=== PATIENT | female | born 1985 | race African-American/Black ===

== ENCOUNTER 2018-06-25 22:35 | Emergency (ER) | payer MEDICAID ==
[~2018-06-25] VITALS: Ht 152.4 cm; Wt 45.7 kg
--- NOTE | 2018-06-25 22:50 | NUR ---
Ale JOHNSON, at bedside to evaluate pt.
[2018-06-25] MEDS ORDERED: MAALOX/HYOSCYAMINE/LIDOCAINE 45 ML BTL PO ONE (23:00)
--- NOTE | 2018-06-25 23:17 | NUR ---
Pt back to room from imaging.
--- NOTE | 2018-06-25 23:26 | NUR ---
Lab at bedside.
[2018-06-25] MEDS ORDERED: MAALOX/HYOSCYAMINE/LIDOCAINE 45 ML BTL ONE (23:28)
--- NOTE | 2018-06-25 23:30 | NUR ---
Pt medicated per MAR.
[2018-06-25 23:38] LABS: BASOPHILS # (AUTO) 0.07 x10^3/uL (0-0.1); BASOPHILS % (AUTO) 1 % (0-1); EOSINOPHILS # (AUTO) 0.28 x10^3/uL (0-0.4); EOSINOPHILS % (AUTO) 3 % (1-7); LYMPHOCYTES # (AUTO) 3.22 x10^3/uL (1-3.4); LYMPHOCYTES % (AUTO) 30 % (22-44); MD NO; MEAN CORPUSCULAR HGB CONC 32.7 g/dL (32.4-35.8); MEAN CORPUSCULAR VOLUME 85.4 fL (80-100); MEAN PLATELET VOLUME 8.3 fL (7.4-10.4); MONOCYTES # (AUTO) 0.54 x10^3/uL (0.2-0.8); MONOCYTES % (AUTO) 5 % (2-9); NEUTROPHILS # (AUTO) 6.74 x10^3/uL (1.8-6.8); NEUTROPHILS % (AUTO) 62 % (42-75); PLATELET COUNT 315 x10^3/uL (130-400); RED BLOOD COUNT 5.04 x10^6/uL (3.82-5.3)
--- NOTE | 2018-06-25 23:42 | NUR ---
Pt denies any decrease in pain after medication.
[2018-06-25 23:50] LABS: ALANINE AMINOTRANSFERASE 26 U/L (12-78); ALBUMIN 3.6 g/dL (3.4-5.0); ANION GAP 6 mmol/L (5-15); CALCIUM 8.5 mg/dL (8.5-10.1); CHLORIDE 109 mmol/L (98-107)
[2018-06-25 23:55] LABS: ALKALINE PHOSPHATASE 50 U/L (45-117); BILIRUBIN,TOTAL 0.3 mg/dL (0.2-1.0); CREATININE 0.54 mg/dL (0.55-1.02); TOTAL PROTEIN 7.3 g/dL (6.4-8.2); TROPONIN I < 0.015 ng/mL (0.000-0.045)
[2018-06-26] MEDS ORDERED: IBUPROFEN 800 MG TABLET PO STA (00:29)
[2018-06-26] MEDS ORDERED: IBUPROFEN 800 MG TABLET ONE (00:32)
--- NOTE | 2018-06-26 00:36 | NUR ---
Pt medicated per MAR.
[2018-06-26 01:44] VITALS: BP 104/58
--- NOTE | 2018-06-26 01:45 | NUR ---
DR. CRUZ AT BEDSIDE TO DISCUSS ED FINDINGS AND D/C INFORMATION.
--- NOTE | 2018-06-26 01:47 | NUR ---
Patient/Caregiver given discharge instructions and they have confirmed that they understand the instructions. Patient ambulatory with steady gait.
== END 2018-06-26 01:49 | disposition home or self-care (01) ==
LOC: ED 23:54
DX: R07.89 Other chest pain (principal)
CPT/HCPCS: 36415; 71046; 80053; 83690; 84484; 84703; 85025; 93005; 99284